=== PATIENT | male | born 1980 | race Caucasian/White ===

== ENCOUNTER 2021-09-23 17:09 | Emergency (ER) | payer OTHER ==
[~2021-09-23] VITALS: Ht 190.5 cm; Wt 88.5 kg
[2021-09-23 18:35] VITALS: BP 134/64
== END 2021-09-23 18:36 | disposition home or self-care (01) ==
LOC: ER 17:09
DX: U07.1 COVID-19 (principal); R06.00 Dyspnea, unspecified; F12.90 Cannabis use, unspecified, uncomplicated